=== PATIENT | male | born 2000 | race Caucasian/White ===

== ENCOUNTER 2018-04-25 12:37 | Emergency (ER) | payer OTHER ==
[~2018-04-25] VITALS: Ht 188 cm; Wt 72.6 kg
[2018-04-25 12:45] VITALS: BP 143/96
[2018-04-25] MEDS ORDERED: LIDOCAINE VISC100 ML SWISH&SPIT (13:03)
[2018-04-25] MEDS ORDERED: TRAMADOL 50 MG50 MG PO (13:03)
[2018-04-25] MEDS ORDERED: AMOXICILLIN 50500 MG PO (13:03)
[2018-04-25] MEDS ORDERED: NAPROSYN500 MG PO (13:03)
== END 2018-04-25 13:13 | disposition home or self-care (01) ==
LOC: M.ERS 12:37
DX: K08.89 Other specified disorders of teeth and supporting structures (principal)

== ENCOUNTER 2018-06-29 08:31 | Emergency (ER) | payer OTHER ==
[~2018-06-29] VITALS: Ht 188 cm; Wt 72.6 kg
[~2018-06-29 08:31] MED LIST: AMOXICILLIN 50500 MG PO; LIDOCAINE VISC100 ML SWISH&SPIT; NAPROSYN500 MG PO; TRAMADOL 50 MG50 MG PO
[2018-06-29] MEDS ORDERED: FLEXERIL PO (08:42)
[2018-06-29] MEDS ORDERED: ULTRAM 50MG TAB50 MG PO (08:42)
[2018-06-29 08:50] VITALS: BP 109/79
== END 2018-06-29 08:50 | disposition home or self-care (01) ==
LOC: M.ERS 08:31
DX: M43.6 Torticollis (principal); Z91.018 Allergy to other foods

== ENCOUNTER 2020-07-17 11:23 | Emergency (ER) | payer OTHER ==
[~2020-07-17] VITALS: Ht 188 cm; Wt 68.0 kg
[~2020-07-17 11:23] MED LIST changes: +FLEXERIL PO; +ULTRAM 50MG TAB50 MG PO
[2020-07-17] MEDS ORDERED: ZPAK PO (12:27)
[2020-07-17] MEDS ORDERED: VENTOLIN HFA 1818 GM INH (12:27)
[2020-07-17] MEDS ORDERED: PREDNISONE 20 M20 MG PO (12:27)
[2020-07-17 12:34] VITALS: BP 145/77
== END 2020-07-17 12:35 | disposition home or self-care (01) ==
LOC: M.ERS 11:23
DX: J06.9 Acute upper respiratory infection, unspecified (principal); Z20.828 Contact with and (suspected) exposure to other viral communicable diseases; F12.90 Cannabis use, unspecified, uncomplicated; F17.210 Nicotine dependence, cigarettes, uncomplicated; Z91.018 Allergy to other foods